=== PATIENT | female | born 1980 | race Caucasian/White ===

== ENCOUNTER 2021-08-09 04:16 | Emergency (ER) | payer OTHER ==
[~2021-08-09 04:16] MED LIST: CELEXA20 MG PO; ORTHO TRI-CYCL1 EACH PO; ZOFRAN4 MG PO
[2021-08-09 04:56] LABS: BASOPHIL 0.2 % (0-2); EOSINOPHIL 0.6 % (0-5); HCT 45.5 % (37.0-47.0); HGB 15.4 g/dl (12.5-16.0); LYMPHOCYTE 4.4 % (15-48); MCH 30.1 pg (25.0-31.0); MCHC 33.8 g/dL (32.0-36.0); MONOCYTE 5.5 % (0-12); NEUTROPHIL 88.9 % (41-80); NRBC 0; PLT 244 K/uL (150-400); RBC 5.11 M/uL (4.20-5.40); RDW 12.1 % (11.5-14.0); WBC 14.8 K/uL (4.0-10.5)
[2021-08-09 05:18] LABS: ALBUMIN 3.9 g/dL (3.4-5.0); BILIRUBIN - TOTAL 0.4 mg/dL (0.2-1.0); BUN/CREAT RATIO (CALC) 28.3 RATIO; CREATININE 0.6 mg/dL (0.51-0.95); GLOBULIN (CALCULATION) 4.1 g/dL; POTASSIUM 4.1 mmol/L (3.5-5.1)
== END 2021-08-09 06:06 | disposition home or self-care (01) ==
LOC: FER 04:16
PROVIDERS: Emergency Medicine
DX: R11.2 Nausea with vomiting, unspecified (principal); R19.7 Diarrhea, unspecified; R07.89 Other chest pain; Z88.1 Allergy status to other antibiotic agents
CPT/HCPCS: 36415; 71045; 80053; 84484; 85025; 93005; J1885; J2405; J7030